=== PATIENT | male | born 1970 | race Caucasian/White ===

== ENCOUNTER 2017-08-21 11:43 | Emergency (ER) | payer MEDICAID ==
[2017-08-21 12:22] VITALS: BP 126/75
[2017-08-21] MEDS ORDERED: Albuterol-Ipratrop 3 mg / 0.5 (3 ml) UD INH STA ×2 (13:12→14:36)
[2017-08-21] MEDS ORDERED: Albuterol-Ipratrop 3 mg / 0.5 (3 ml) UD ONE ×2 (13:29→14:43)
--- NOTE | 2017-08-21 13:31 | ED PDOC ---
HPI: General Adult Time Seen by Provider: 08/21/17 13:02 Chief Complaint (Nursing): Cough, Cold, Congestion Chief Complaint (Provider): Fever, Wheezing, SOB History Per: Patient History/Exam Limitations: no limitations Onset/Duration Of Symptoms: Days (x2) Current Symptoms Are (Timing): Still Present Additional Complaint(s): 46 y/o male with pmhx of asthma, who presents to the ED with mild fever, wheezing, and difficulty breathing x2 days. Patient indicates that his asthma is usually controlled by a rescue inhaler, which he states is ineffective in this occasion. Patient has been sick for the last several days which he states tends to be a trigger for asthma. Denies nausea, vomiting, diarrhea, or other complaints. PMD: Blanca Bennett Past Medical History Reviewed: Historical Data, Nursing Documentation, Vital Signs Vital Signs: Last Vital Signs Temp 98.4 F 08/21/17 14:11 Pulse 83 08/21/17 14:11 Resp 16 08/21/17 14:11 BP 126/75 08/21/17 12:18 Pulse Ox 95 08/21/17 15:46 - Medical History PMH: Asthma, Bronchitis - Surgical History Surgical History: No Surg Hx - Family History Family History: States: Unknown Family Hx - Social History Current smoker - smoking cessation education provided: No Alcohol: None Drugs: Denies - Home Medications Home Medications: Ambulatory Orders Medication Instructions Recorded Albuterol Sulfate [Albuterol Hfa] 0.09 mg IH Q4 PRN #1 ml 03/17/15 Albuterol Sulfate [Albuterol 3 ml IH Q4 PRN #25 sue 03/17/15 Sulfate 2.5mg/3 ml 0.083%] Albuterol HFA [Ventolin HFA 90 1 - 2 puff IH Q4 PRN #1 inhaler 06/22/15 mcg/actuation (8 g)] Albuterol/Ipratropium [Duoneb 3 3 ml IH PRN PRN #30 neb 08/21/17 MG/3 Ml-0.5 MG/3 Ml 3 Ml] - Allergies Allergies/Adverse Reactions: Allergies Allergy/AdvReac Type Severity Reaction Status Date / Time No Known Allergies Allergy Verified 08/21/17 12:17 Review of Systems ROS Statement: Except As Marked, All Systems Reviewed And Found Negative Constitutional: Positive for: Fever Respiratory: Positive for: Shortness of Breath, Wheezing Gastrointestinal: Negative for: Nausea, Vomiting, Diarrhea Physical Exam - Reviewed Nursing Documentation Reviewed: Yes Vital Signs Reviewed: Yes - Physical Exam Appears: Positive for: Non-toxic, No Acute Distress Head Exam: Positive for: ATRAUMATIC, NORMAL INSPECTION, NORMOCEPHALIC Skin: Positive for: Normal Color, Warm. Negative for: Dry Eye Exam: Positive for: Normal appearance Cardiovascular/Chest: Positive for: Regular Rate, Rhythm. Negative for: Murmur Respiratory: Positive for: Wheezing (diffuse bilaterally), Other (no retractions ). Negative for: Respiratory Distress Neurologic/Psych: Positive for: Alert, Oriented (x3) - ECG O2 Sat by Pulse Oximetry: 95 (RA) Pulse Ox Interpretation: Normal Medical Decision Making Medical Decision Making: Time: 13:12 Plan: -Duoneb 3ml INH -Flu swab -Reevaluation- upon reevaluation, pt is afebrile and comfortable with no wheezing or difficultypassing air. Pt requests discharge Scribe Attestation: Documented by Baldomero Castillo, acting as a scribe for Bob Henderson PA-C Provider Scribe Attestation: All medical record entries made by the Scribe were at my direction and personally dictated by me. I have reviewed the chart and agree that the record accurately reflects my personal performance of the history, physical exam, medical decision making, and the department course for this patient. I have also personally directed, reviewed, and agree with the discharge instructions and disposition. Disposition - Clinical Impression Clinical Impression: Bronchospasm - Patient ED Disposition Is Patient to be Admitted: No Counseled Patient/Family Regarding: Studies Performed, Diagnosis, Need For Followup, Rx Given - Disposition Disposition: Routine/Home Disposition Time: 15:43 Condition: GOOD Prescriptions: Albuterol/Ipratropium [Duoneb 3 MG/3 Ml-0.5 MG/3 Ml 3 Ml] 3 ml IH PRN PRN #30 neb PRN Reason: Wheezing Instructions: Asthma in Adults, Medicines for Asthma, Rescue vs Controller Inhalers Forms: [facility] [facility] (Serbian)
[2017-08-21 14:11] VITALS: PULSE 83; RESP 16; TEMP 98.4
[2017-08-21 15:08] VITALS: O2SAT 95
== END 2017-08-21 16:15 | disposition home or self-care (01) ==
LOC: H.ER 11:43
DX: J98.01 Acute bronchospasm (principal); J45.909 Unspecified asthma, uncomplicated
CPT/HCPCS: 87804; 94640; 96372; 99282; J1100